=== PATIENT | female | born 1945 ===

== ENCOUNTER 2022-03-13 06:27 | Day surgery (SDC) | payer OTHER | END 2022-03-13 12:20 | disposition home or self-care (01) | LOC: AMB-ENDOS 06:27 | PROVIDERS: ATTEND Surgery | DX: K63.5 Polyp of colon (principal); K57.30 Diverticulosis of large intestine without perforation or abscess without bleeding; R19.4 Change in bowel habit; R19.5 Other fecal abnormalities; Z20.822 Contact with and (suspected) exposure to COVID-19 ==